=== PATIENT | male | born 1975 | race Caucasian/White ===

== ENCOUNTER 2021-10-29 17:02 | Emergency (ER) | payer BC ==
[2021-10-29] MEDS ORDERED: VANCOMYCIN 1 GM/VIAL ONE (17:54)
[2021-10-29] MEDS ORDERED: NA CHLORIDE 0.9% 250 ML ONE (17:55)
[2021-10-29] MEDS ORDERED: VANCOMYCIN 500 MG/VIAL ONE (17:55)
[2021-10-29] MEDS ORDERED: NA CHLORIDE 0.9% 1,000 ML ONE (17:55)
[2021-10-29 18:12] LABS: Absolute Lymphocytes (CBC) 1.8 K/uL (0.7-4.9); Hematocrit 41.5 % (39.6-49.0); Lymphocytes % 27.3 % (15.3-44.8); MCV 85.6 fL (80-100); MPV 9.1 fL (7.6-11.3); RBC Red Blood Cell Count 4.86 M/uL (4.33-5.43)
[2021-10-29 18:29] LABS: Albumin 3.8 g/dL (3.4-5.0); Bilirubin Total 0.8 mg/dL (0.2-1.0); Potassium 4.3 mmol/L (3.5-5.1); Protein, Total 7.3 g/dL (6.4-8.2)
--- NOTE | 2021-10-29 18:35 | RAD REPORT ---
EXAM DESCRIPTION: US - Extremity Nonvascular Limited - 10/29/2021 6:17 pm CLINICAL HISTORY: right lower abdomen Pelvic pain COMPARISON: No comparisons TECHNIQUE: Real-time sonographic evaluation of the area of interest was performed. FINDINGS: Complex poorly defined collection is seen in the area of interest right lower quadrant desirae suring approximately 2.8 x 0.4 x 1.0 cm. This is probably a subcutaneous abscess.
[2021-10-29] MEDS ORDERED: LIDOCAINE 1% MPF 5 ML VIAL ONE (18:49)
--- NOTE | 2021-10-29 19:37 | ER ---
Nurse's Notes [facility] Name: Mike Shukla Age: 46 yrs Sex: Male : 1975 Arrival Date: 10/29/2021 Time: 17:05 Bed 9 Private MD: Diagnosis: Cutaneous abscess of trunk Presentation: 10/29 17:17 Chief complaint: Patient states: Sore on abdomen, RLQ, 6 days. Coronavirus screen: At jl7 this time, the client does not indicate any symptoms associated with coronavirus-19. Ebola Screen: No symptoms or risks identified at this time. Initial Sepsis Screen: Does the patient meet any 2 criteria? No. Patient's initial sepsis screen is negative. Does the patient have a suspected source of infection? Yes: Skin breakdown/wound. Risk Assessment: Do you want to hurt yourself or someone else? Patient reports no desire to harm self or others. Onset of symptoms was October 24, 2021. 17:17 Method Of Arrival: Ambulatory [facility] 17:17 Acuity: LUPILLO 3 jl7 Triage Assessment: 17:18 General: Appears in no apparent distress. uncomfortable, Behavior is calm, cooperative, jl7 appropriate for age. Pain: Complains of pain in right lower quadrant Pain currently is 8 out of 10 on a pain scale. Derm: Wound noted right lower quadrant. Historical: - Allergies: 17:18 No Known Allergies; jl7 - Home Meds: 17:18 None [Active]; jl7 - PMHx: 17:18 None; jl7 - PSHx: 17:18 None; jl7 - Immunization history:: Client reports having NOT received the Covid vaccine. Last tetanus immunization: < 10 years ago. - Social history:: Smoking status: Patient reports the use of cigarette tobacco products. Screenin:11 Abuse screen: Denies threats or abuse. Denies injuries from another. Nutritional hb screening: No deficits noted. Tuberculosis screening: No symptoms or risk factors identified. Fall Risk None identified. Assessment: 18:11 General: Appears in no apparent distress. Behavior is calm, cooperative. Pain: Pain hb currently is 4 out of 10 on a pain scale. at worst was 8 out of 10 on a pain scale. Neuro: Level of Consciousness is awake, alert, obeys commands, Oriented to person, place, time, situation. Cardiovascular: Patient's skin is warm and dry. Respiratory: Respiratory effort is even, unlabored, Respiratory pattern is regular, symmetrical. GI: No signs and/or symptoms were reported involving the gastrointestinal system. : No signs and/or symptoms were reported regarding the genitourinary system. EENT: No signs and/or symptoms were reported regarding the EENT system. Derm: Skin is pink, warm \T\ dry. Abscess located on right lower quadrant. Musculoskeletal: No signs and/or symptoms reported regarding the musculoskeletal system. Vital Signs: 17:17 BP 111 / 81; Pulse 75; Resp 17; Temp 98.4; Pulse Ox 98% ; Weight 129.27 kg; Height 6 jl7 ft. 0 in. (182.88 cm); Pain 8/10; 17:17 Body Mass Index 38.65 (129.27 kg, 182.88 cm) jl7 ED Course: 17:05 Patient arrived in ED. mr 17:13 [facility] Rolle[facility] snw 17:13 Julian Menjivar MD is Attending Physician. snw 17:18 Triage completed. jl7 17:18 Arm band placed on right wrist. jl7 17:30 Mandi Fernandez, RN is Primary Nurse. hb 17:59 Inserted saline lock: 20 gauge in right antecubital area, using aseptic technique. hb Blood collected. 18:12 Patient has correct armband on for positive identification. hb 18:21 US Extrmty Nonvasular Limited In Process Unspecified. EDMS 20:34 No provider procedures requiring assistance completed. IV discontinued, intact, hb bleeding controlled, No redness/swelling at site. Administered Medications: 18:01 Drug: NS 0.9% 1000 ml Route: IV; Rate: 125 ml/hr; Site: right antecubital; hb 18:24 Drug: vancoMYCIN 1.5 grams Route: IVPB; Rate: calculated rate; Site: right antecubital; hb 19:05 Drug: Lidocaine (1 %) 1 vials Volume: 20 ml; Route: Infiltration; hb Medication: 18:11 VIS not applicable for this client. hb Outcome: 19:37 Discharge ordered by . snw 20:34 Discharged to home ambulatory. hb 20:34 Condition: stable 20:34 Discharge instructions given to patient, Instructed on discharge instructions, follow up and referral plans. medication usage, Demonstrated understanding of instructions, follow-up care, medications, wound care, Prescriptions given X 2. 20:34 Patient left the ED. hb Signatures: Dispatcher [employer] EDSamreen Tobar, JO FELIX-Fidelina Canela Heather, RN RN Tracee Diallo RN RN jl7
--- NOTE | 2021-10-29 19:38 | EDPHYS ---
Physician Documentation [facility] Name: Mike Shukla Age: 46 yrs Sex: Male : 1975 Arrival Date: 10/29/2021 Time: 17:05 Bed 9 Private MD: ED Physician Julian Menjivar HPI: 10/29 18:22 This 46 yrs old Male presents to ER via Ambulatory with complaints of Infection, Rash. snw 18:22 Onset: The symptoms/episode began/occurred 4 day(s) ago, and became worse yesterday, snw and became persistent. Associated signs and symptoms: The patient has no apparent associated signs or symptoms. The patient has not experienced similar symptoms in the past. The patient has not recently seen a physician. Historical: - Allergies: 17:18 No Known Allergies; jl7 - Home Meds: 17:18 None [Active]; jl7 - PMHx: 17:18 None; jl7 - PSHx: 17:18 None; jl7 - Immunization history:: Client reports having NOT received the Covid vaccine. Last tetanus immunization: < 10 years ago. - Social history:: Smoking status: Patient reports the use of cigarette tobacco products. ROS: 18:22 Constitutional: Negative for fever, chills, and weight loss, Eyes: Negative for injury, snw pain, redness, and discharge, ENT: Negative for injury, pain, and discharge, Neck: Negative for injury, pain, and swelling, Cardiovascular: Negative for chest pain, palpitations, and edema, Respiratory: Negative for shortness of breath, cough, wheezing, and pleuritic chest pain, Back: Negative for injury and pain, : Negative for injury, bleeding, discharge, and swelling, MS/Extremity: Negative for injury and deformity, Skin: Negative for injury, rash, and discoloration, Neuro: Negative for headache, weakness, numbness, tingling, and seizure, Psych: Negative for depression, anxiety, suicide ideation, homicidal ideation, and hallucinations. 18:22 Abdomen/GI: Positive for wound to right lower abd. Exam: 18:20 Constitutional: This is a well developed, well nourished patient who is awake, alert, snw and in no acute distress. Head/Face: Normocephalic, atraumatic. Eyes: Pupils equal round and reactive to light, extra-ocular motions intact. Lids and lashes normal. Conjunctiva and sclera are non-icteric and not injected. Cornea within normal limits. Periorbital areas with no swelling, redness, or edema. ENT: Nares patent. No nasal discharge, no septal abnormalities noted. Tympanic membranes are normal and external auditory canals are clear. Oropharynx with no redness, swelling, or masses, exudates, or evidence of obstruction, uvula midline. Mucous membranes moist. Neck: Trachea midline, no thyromegaly or masses palpated, and no cervical lymphadenopathy. Supple, full range of motion without nuchal rigidity, or vertebral point tenderness. No Meningismus. Chest/axilla: Normal chest wall appearance and motion. Nontender with no deformity. No lesions are appreciated. Cardiovascular: Regular rate and rhythm with a normal S1 and S2. No gallops, murmurs, or rubs. Normal PMI, no JVD. No pulse deficits. Respiratory: Lungs have equal breath sounds bilaterally, clear to auscultation and percussion. No rales, rhonchi or wheezes noted. No increased work of breathing, no retractions or nasal flaring. Back: No spinal tenderness. No costovertebral tenderness. Full range of motion. Skin: Warm, dry with normal turgor. Normal color with no rashes, no lesions, and no evidence of cellulitis. MS/ Extremity: Pulses equal, no cyanosis. Neurovascular intact. Full, normal range of motion. Neuro: Awake and alert, GCS 15, oriented to person, place, time, and situation. Cranial nerves II-XII grossly intact. Motor strength 5/5 in all extremities. Sensory grossly intact. Cerebellar exam normal. Normal gait. Psych: Awake, alert, with orientation to person, place and time. Behavior, mood, and affect are within normal limits. 18:20 Abdomen/GI: Inspection: obese Bowel sounds: normal, in all quadrants, cutaneous abscess to right lower abdomen, + drainage with surrounding erythema. Vital Signs: 17:17 BP 111 / 81; Pulse 75; Resp 17; Temp 98.4; Pulse Ox 98% ; Weight 129.27 kg; Height 6 jl7 ft. 0 in. (182.88 cm); Pain 8/10; 17:17 Body Mass Index 38.65 (129.27 kg, 182.88 cm) jl7 Procedures: 19:22 I \T\ D: Incision and drainage was performed for an abscess of the right lower quadrant snw Prepped with hibiclens. Anesthetized with 5 ml's 1% Lidocaine. Incised with #11 blade. Drained moderate amount Loculations removed. Abscess cavity explored. Packed with sterile gauze, Dressing: sterile 4x4 gauze, the patient tolerated the procedure well. MDM: 17:22 Patient medically screened. snw 19:38 Data reviewed: vital signs, nurses notes. Data interpreted: Pulse oximetry: on room air snw is 98 %. Counseling: I had a detailed discussion with the patient and/or guardian regarding: the historical points, exam findings, and any diagnostic results supporting the discharge/admit diagnosis, lab results, radiology results, the need for outpatient follow up, to return to the emergency department if symptoms worsen or persist or if there are any questions or concerns that arise at home. Response to treatment: the patient's symptoms have mildly improved after treatment. Special discussion: Based on the history and exam findings, there is no indication for further emergent testing or inpatient evaluation. I discussed with the patient/guardian the need to see the primary care provider for further evaluation of the symptoms. 10/29 17:32 Order name: Wound Culture snw 10/29 17:32 Order name: CBC with Diff; Complete Time: 18:20 snw 10/29 17:32 Order name: US Extrmty Nonvasular Limited; Complete Time: 18:36 snw 10/29 17:32 Order name: CMP; Complete Time: 18:30 snw 10/29 17:32 Order name: Blood Culture Adult (2) snw 10/29 17:32 Order name: Lactate; Complete Time: 18:36 snw 10/29 19:23 Order name: Misc. Order: Please help pt with spandage to maintain abd pad; Complete snw Time: 19:50 Administered Medications: 18:01 Drug: NS 0.9% 1000 ml Route: IV; Rate: 125 ml/hr; Site: right antecubital; hb 18:24 Drug: vancoMYCIN 1.5 grams Route: IVPB; Rate: calculated rate; Site: right antecubital; hb 19:05 Drug: Lidocaine (1 %) 1 vials Volume: 20 ml; Route: Infiltration; hb Disposition Summary: 10/29/21 19:37 Discharge Ordered Location: Home snw Condition: Stable snw Diagnosis - Cutaneous abscess of trunk snw Followup: snw - With: Private Physician - When: 2 - 3 days - Reason: Recheck today's complaints, Continuance of care, Re-evaluation by your physician Followup: snw - With: Emergency Department - When: As needed - Reason: Worsening of condition Discharge Instructions: - Discharge Summary Sheet snw - Skin Abscess snw - Incision and Drainage, Care After snw Forms: - Medication Reconciliation Form snw - Thank You Letter snw - Antibiotic Education snw - Prescription Opioid Use snw Prescriptions: - Tramadol 50 mg Oral Tablet - take 1 tablet by ORAL route every 8 hours as needed; 12 tablet; Refills: 0, snw Product Selection Permitted - Bactrim DS 800-160 mg Oral Tablet - take 1 tablet by ORAL route every 12 hours for 10 days; 20 tablet; Refills: 0, snw Product Selection Permitted Signatures: Dispatcher [employer] EDSamreen Tobar, COMPUTER SUPPORT TECHNICIAN-C COMPUTER SUPPORT TECHNICIAN-Csnw Mandi Fernandez, RN RN Tracee Lam RN RN jl7
[2021-10-29 21:30] VITALS: BP 111/81; TEMP 98.4; O2SAT 98
== END 2021-10-29 20:34 | disposition home or self-care (01) ==
LOC: ER 17:02
PROC: 0H97XZZ Drainage of Abdomen Skin, External Approach (ICD-10-PCS; principal; 2021-10-29)
DX: L02.211 Cutaneous abscess of abdominal wall (principal); F17.210 Nicotine dependence, cigarettes, uncomplicated
CPT/HCPCS: 87040 ×2; 87070; 85025; 36415; 87205; 83605; 80053; 76882; 96374; 99284; 10060; J2001; J3370; J7050; J7030; 87077; 87186